=== PATIENT | male | born 1960 | race Caucasian/White ===

== ENCOUNTER 2024-01-07 10:21 | Emergency (ER) | payer BC, SELFPAY ==
[2024-01-07 10:27] VITALS: BP 174/97
[2024-01-07] MEDS: ADACEL 0.5 ML IM (11:29)
--- NOTE | 2024-01-07 11:44 | ED.GENMED ---
History of Present Illness
General
Chief Complaint: Eye Problems
Source: patient
Exam Limitations: none
Time Seen by Provider: 01/07/24 11:11
History of Present Illness
History of Present Illness:
Patient with a puncture wound from a tree branch to the right eye. No visual issues. Complaining of some pain. Mild headache. Last tetanus is unknown.
Phy Exam
Physical Exam
Physical Exam:
General: Nontoxic appearing in no distress
Skin: Warm and dry, no rash
Neuro: Alert, nontoxic, grossly nonfocal
Psychiatric: Good eye contact and appropriate
Eye: Right eye with a clear cornea. No hyphema. No foreign body or abrasion. However large subconjunctival hemorrhage to the right lateral and inferior orbit with a scleral laceration. No foreign body noted. Fluorescein negative of the cornea
Course
Orders/Labs/Results
Orders:
Orders
01/07/24 11:20
Tetanus/Diphth/Acelpertussis [Adacel] 0.5 ml IM .ONCE ONE
01/07/24 11:30
CT Orbits W/o Iv Contrast Urgent
Comment:
Reason For Exam: trauma. evaluate for fb
Vital Signs
Initial and Last Documented VS:
Initial Vital Signs
Temp Pulse Resp BP Pulse Ox
98 F 56 16 174/97 98
01/07/24 10:27 01/07/24 10:27 01/07/24 10:27 01/07/24 10:27 01/07/24 10:27
Last Documented Vital Signs
Temp Pulse Resp BP Pulse Ox
98 F 62 16 177/104 98
01/07/24 10:27 01/07/24 12:01 01/07/24 10:27 01/07/24 12:01 01/07/24 10:27
MDM/Problems Addressed
Differential Diagnosis Includes:
Reviewed and picture sent to ophthalmology will come in for evaluation. I ordered a CT of the orbit to check for foreign body although very low clinical suspicion. Will review with ophthalmology when they come in
*Radiology
Radiology exam reviewed: radiology read reviewed (neg)
*Critical Care Note
Total Time (30-74mins, 75-104mins- exclusive of procedures): Not Applicable
Update Note
Update Note:
Ophthalmology is here and will take the patient directly to the office for follow-up. It is aware that he needs to follow-up his blood pressure
ED Attending Note
-
Portions of this chart may have been created with voice recognition software.� Occasional wrong word or��sound alike� substitutions may have occurred due to the inherent limitations of voice recognition software.
Discharge Plan
Departure
Patient Disposition: Home (Routine Discharge)
Date of Disposition: 01/07/24
Time of Disposition: 12:51
Patient with high blood pressure during this ER visit?: Yes
Discharge Problem:
Subconjunctival hemorrhage/scleral lacer, Elevated blood pressure reading
Referrals:
Bekah Wheatley, DO [Family Provider] -
Interventions
Interventions:
*Risk Screen - Suicide Last Done: 01/07/24 10:27
*General Assessment Last Done: 01/07/24 10:27
*Neglect/Abuse Screening Last Done: 01/07/24 10:27
ED- Fall Risk Assessment Last Done: 01/07/24 10:59
Discharge Date and Time
Print Language: [id number]
[2024-01-07 12:00] VITALS: BP 167/106
[2024-01-07 12:01] VITALS: BP 177/104
== END 2024-01-07 12:59 | disposition home or self-care (01) ==
LOC: EMR 10:21
PROVIDERS: EMERGENCY PHYSICIAN Emergency Medicine; FAMILY PHYSICIAN Family Medicine
DX: H11.31 Conjunctival hemorrhage, right eye (principal); S05.31XA Ocular laceration without prolapse or loss of intraocular tissue, right eye, initial encounter; R51.9 Headache, unspecified; W22.8XXA Striking against or struck by other objects, initial encounter; Z23 Encounter for immunization; R03.0 Elevated blood-pressure reading, without diagnosis of hypertension
CPT/HCPCS: 99284; 90471; 70480; 90715